=== PATIENT | male | born 1950 | race Caucasian/White ===

== ENCOUNTER → 2019-10-04 | Outpatient (CLI) | payer MEDICARE ==
[~2019-10-04] MED LIST: AMLO2.5T4 PO; ASPI-1197 PO; ATOR40TA71 PO; CARV6.25 PO; CHOL100044 PO; CINNAMON PO; CYAN50008 PO; FISH1CAP63 PO; FLUO-126 PO; JUICE PLUS PO; LISD50CA PO; LISI1TAB28 PO; MODA200T48 PO; RANO500T3 PO
== END | disposition home or self-care (01) ==
LOC: RAH 11:38
PROVIDERS: ATTEND Nurse Practitioner Adult Health
DX: R05 Cough (principal)
CPT/HCPCS: 71046

== ENCOUNTER → 2022-03-26 | Outpatient (CLI) | payer MEDICARE ==
[~2022-03-26] MED LIST changes: -CYAN50008 PO; +CYAN50009 PO; -FLUO-126 PO; +FLUO20CA36 PO; -LISI1TAB28 PO; +LISI1TAB51 PO
== END | disposition home or self-care (01) ==
LOC: RAH 12:18
PROVIDERS: ATTEND Nurse Practitioner Adult Health
DX: M47.816 Spondylosis without myelopathy or radiculopathy, lumbar region (principal); M48.061 Spinal stenosis, lumbar region without neurogenic claudication; M43.5X6 Other recurrent vertebral dislocation, lumbar region
CPT/HCPCS: 72100

== ENCOUNTER → 2022-04-27 | Outpatient (CLI) | payer MEDICARE | END | disposition home or self-care (01) | LOC: RAH 10:42 | PROVIDERS: ATTEND Nurse Practitioner Adult Health | DX: M47.816 Spondylosis without myelopathy or radiculopathy, lumbar region (principal); M51.36 Other intervertebral disc degeneration, lumbar region; M79.604 Pain in right leg; M79.605 Pain in left leg; M48.061 Spinal stenosis, lumbar region without neurogenic claudication | CPT/HCPCS: 72148 ==

== ENCOUNTER → 2023-09-01 | Outpatient (CLI) | payer MEDICARE | END | disposition home or self-care (01) | LOC: RAH 09:42 | PROVIDERS: ATTEND Nurse Practitioner Adult Health | DX: M47.27 Other spondylosis with radiculopathy, lumbosacral region (principal); M51.16 Intervertebral disc disorders with radiculopathy, lumbar region; M47.26 Other spondylosis with radiculopathy, lumbar region | CPT/HCPCS: 72148 ==

== ENCOUNTER → 2023-09-04 | Outpatient (CLI) | payer MEDICARE | END | disposition home or self-care (01) | LOC: SHCH 08:48 | PROVIDERS: ATTEND Internal Medicine Cardiovascular Disease | DX: I20.9 Angina pectoris, unspecified (principal); I51.7 Cardiomegaly; I51.89 Other ill-defined heart diseases; R06.09 Other forms of dyspnea; R06.02 Shortness of breath | CPT/HCPCS: 93306 ==

== ENCOUNTER → 2023-09-14 | Outpatient (CLI) | payer MEDICARE | END | disposition home or self-care (01) | LOC: SHCH 14:27 | PROVIDERS: ATTEND Internal Medicine Cardiovascular Disease | DX: I87.2 Venous insufficiency (chronic) (peripheral) (principal); I87.1 Compression of vein | CPT/HCPCS: 93970 ==

== ENCOUNTER → 2023-12-31 | Outpatient (CLI) | payer MEDICARE | END | disposition home or self-care (01) | LOC: RAH 11:04 | PROVIDERS: ATTEND Nurse Practitioner Adult Health | DX: M54.50 Low back pain, unspecified (principal); Z98.1 Arthrodesis status | CPT/HCPCS: 72100 ==

== ENCOUNTER → 2024-05-04 | Outpatient (CLI) | payer MEDICARE ==
[~2024-05-04] MED LIST changes: +FLUO-418 PO; -FLUO20CA36 PO
== END | disposition home or self-care (01) ==
LOC: RAH 10:24
PROVIDERS: ATTEND Nurse Practitioner Adult Health
DX: M47.816 Spondylosis without myelopathy or radiculopathy, lumbar region (principal); M41.86 Other forms of scoliosis, lumbar region; M54.50 Low back pain, unspecified; Z96.698 Presence of other orthopedic joint implants; Z98.1 Arthrodesis status
CPT/HCPCS: 72100